=== PATIENT | male | born 1985 | race Caucasian/White ===

== ENCOUNTER 2023-05-10 15:48 | Emergency (ER) | payer SELFPAY ==
[2023-05-10 15:56] VITALS: BP 124/84
[2023-05-10 16:23] LABS: % Basophils 0.3 % (0-2); % Immature Granulocytes 0.1 % (0-0.5); % Lymphocytes 15.6 % (20.5-51.1); % Monocytes 5.6 % (1.7-9.3); % Neutrophils 78.4 % (42.2-75.2); Absolute Lymphocytes 1.4 10^3/uL (1.2-3.4); Absolute Monocytes 0.5 10^3/uL (0.1-0.6); Absolute Neutrophils 7.1 10^3/uL (1.4-6.5); Hematocrit 43.6 % (39.0-52.0); Hemoglobin 15.4 g/dL (13.0-18.0); Mean Corp Hgb Conc. 35.3 g/dL (33.0-37.0); Mean Corpuscular Hgb 30.9 pg (27.0-31.0); Mean Corpuscular Volume 87.6 fL (80.0-94.0); Nucleated Red Blood Cells % 0 % (-); Platelet Count 280 10^3/uL (130-400); Red Blood Cell Count 4.98 10^6/uL (4.70-6.10); Red Cell Dist. Width 12.1 % (11.5-14.5); White Blood Cell Count 9.1 10^3/uL (4.8-10.8)
[2023-05-10 16:36] LABS: ALT (SGPT) 20 U/L (0-50); AST (SGOT) 28 U/L (17-59); Albumin 5.2 g/dl (3.5-5.0); Alkaline Phosphatase 52 U/L (38-126); Blood Urea Nitrogen 12 mg/dl (9-20); Carbon Dioxide 26 mmol/L (22-30); Chloride 96 mmol/L (98-107); Glucose 122 mg/dl (70-99); Potassium 3.7 mmol/L (3.5-5.1); Sodium 138 mmol/L (135-145); Total Protein 8.2 g/dl (6.3-8.2); eGFR > 60.00
[2023-05-10 18:07] LABS: Acetaminophen < 10 ug/ml (10-30); Alcohol None Detected; Salicylate < 1.0 mg/dl (2.0-20.0)
--- NOTE | 2023-05-10 19:40 | ED.GENMED ---
History of Present Illness
General
Chief Complaint: Crisis Evaluation
Time Seen by Provider: 05/10/23 19:00
Travel History
Have you had any contact with someone who has COVID-19?: No
Do you have any symptoms of coronavirus? Fever > 100 degrees, chills, cough, shortness of breath, sore throat, loss of taste or smell, muscle aches, or headache?: No
History of Present Illness
History of Present Illness:
HPI: I initially spoke to crisis at around 7 PM and they inform me that the patient is here on a 302 petitioned by his sister. The 302 reads 'a brother has history of depression, anxiety, substance abuse and developed new onset psychosis for the
first time 2 weeks ago, delusions and hallucinations worsening over the past 3 days he is seeing friends and family he is incredibly paranoid, he is seeing things crawling on the best, he has not been eating, he has been had carrying around a
hatchet for protection, is more agitated and aggressive...'. However, when I evaluate the patient, the patient appears very calm and denies any significant paranoia or hallucinations and just states that he has been working a lot and they have not
been feeding him at work like they should be. He states he used to abuse pain medication is currently on Suboxone
EXAM:
GENERAL: Well appearing in no distress
HEENT: Moist oral mucosa
CARDIOVASCULAR: No murmurs, normal heart rate and rhythm, No chest wall tenderness
PULMONARY: No respiratory distress, breath sounds are clear and equal
ABDOMEN: Soft with no peritoneal signs, no tenderness
NEUROLOGIC: Excellent strength all extremities, no coordination deficits
PSYCHIATRIC: Appropriate mental status, normal insight and judgement
EXTREMITIES: Nontender, no edema, moves all extremities equally
SKIN: No rash, no lesions
ED COURSE:
7 PM: I initially evaluated patient
NUMBER AND COMPLEXITY OF PROBLEMS ADDRESSED AT THE ENCOUNTER
� Chronic conditions affecting care: No significant past medical history
� Acute Exacerbation and/or Progression of Chronic Illness: This is an acute problem
� Differential Diagnosis includes: New onset schizophrenia/paranoia, substance use
AMOUNT AND/OR COMPLEXITY OF DATA TO BE REVIEWED AND ANALYZED
� I performed an independent evaluation of and my interpretation is:
EKG:
CT:
X-rays:
Laboratory Studies: CBC and chemistries unremarkable, salicylates and acetaminophen undetected, alcohol not detected, UDS positive for marijuana, buprenorphine (which patient admits), and amphetamine (on Adderall)
Other:
� Review of other/old records: The patient had 1 ER visit here in 2009 related to flank pain and had a CAT scan at that time that was unremarkable
� Clinical information was obtained by an independent historian: I spoke to [facility] and reviewed the 302
� Prescriptions/Medications Considered but not given:
� Further testing considered but not performed:
RISK OF COMPLICATIONS AND/OR MORBIDITY OR MORTALITY OF PATIENT MANAGEMENT
� Social determinants of health affecting care: Lives at home, says that he works at [employer] in [place]
� Discussion with other providers: I spoke to crisis at around 7 PM
� Escalation of care including admission/observation vs risk of discharge considered: I did review the 302 which does sound concerning. However the patient denies any significant symptoms and is cooperative with reasonable
insight and judgment currently. He was interviewed by telepsych shortly after my initial evaluation. I spoke to crisis at 8:18 PM. Telepsych findings are currently pending.
Past History
Past History
ED Past Medical History: None
ED Past Surgical History: None
Social History
Tobacco: Smoker
Employment: Employed
Phy Exam
Physical Exam
Physical Exam:
See HPI
Course
Orders/Labs/Results
Orders:
Orders
05/10/23 16:07
Acetaminophen Urgent
Comment: ADD ON
Alcohol Urgent
Complete Blood Count/With Diff Urgent
Comprehensive Metabolic Panel Urgent
Salicylate Urgent
Comment: ADD ON
05/10/23 17:11
Add On- LAB Urgent
Comments:: sst in lab
Tests Added?: alcohol, acetaminophen, salicylate
05/10/23 19:38
Drug Screen, Urine [Urine Drug Abuse Screen] Urgent
Date Specimen was Collected: 05/10/23
Time Specimen was Collected: 19:36
Fentanyl, Urine Urgent
05/10/23 23:55
Nicotine [Nicoderm Transdermal] 21 mg .ROUTE .STK-MED ONE
05/11/23 00:01
Nicotine [Nicoderm Transdermal] 14 mg .ROUTE .STK-MED ONE
05/11/23 08:00
Nicotine [Nicoderm Transdermal] 14 mg TRANSDERM DAILY
05/11/23 11:27
COVID-19 Antigen Urgent
Source: Nasal Swab
05/11/23 12:29
Buprenorphine [Subutex] 12 mg SL NOW ONE
05/11/23 13:00
Nicotine [Nicoderm Transdermal] 21 mg TRANSDERM DAILY
Abnormal Lab Results
05/10/23 05/10/23
16:07 19:38
Absolute Neuts (auto) 7.1 H 10^3/uL
(1.4-6.5)
Neutrophils % 78.4 H %
(42.2-75.2)
Lymphocytes % 15.6 L %
(20.5-51.1)
Chloride 96 L mmol/L
(98-107)
Creatinine 0.6 L mg/dL
(0.7-1.3)
Glucose 122 H mg/dl
(70-99)
Albumin 5.2 H g/dl
(3.5-5.0)
Salicylates < 1.0 L mg/dl
(2.0-20.0)
Ur Buprenorphine Positive H
(Negative)
Acetaminophen < 10 L ug/ml
(10-30)
Ur Amphetamines Screen Positive H
(Negative)
U Marijuana (THC) Screen Positive H
(Negative)
05/10/23 16:07
05/10/23 16:07
Vital Signs
Initial and Last Documented VS:
Initial Vital Signs
Temp Pulse Resp BP Pulse Ox
98.2 F 72 18 124/84 96
05/10/23 15:56 05/10/23 15:56 05/10/23 15:56 05/10/23 15:56 05/10/23 15:56
Last Documented Vital Signs
Temp Pulse Resp BP Pulse Ox
97.9 F 85 20 125/68 100
05/11/23 00:04 05/11/23 00:04 05/11/23 00:04 05/11/23 00:04 05/11/23 00:04
*Critical Care Note
Total Time (30-74mins, 75-104mins- exclusive of procedures): Not Applicable
ED Attending Note
-
Portions of this chart may have been created with voice recognition software.� Occasional wrong word or��sound alike� substitutions may have occurred due to the inherent limitations of voice recognition software.
Discharge Plan
Departure
Patient Disposition: Psych Facility
Discharge Problem:
Psychosis
Prescriptions:
No Action
hydrocodone-acetaminophen 5 MG/500 MG tablet
1 tab PO Q4HPRN PRN (Reason: PAIN) Qty: 15 0RF
Referrals:
NONE,* [Family Provider] -
Interventions
Interventions:
*Risk Screen - Suicide Last Done: 05/10/23 15:56
*General Assessment Last Done: 05/10/23 15:56
*Neglect/Abuse Screening Last Done: 05/10/23 15:56
ED- Fall Risk Assessment Last Done: 05/11/23 16:12
*ED COVID-19 Vaccine History Last Done: 05/10/23 15:56
*Nursing Disposition Last Done: 05/11/23 16:12
ED- Cardiac Assessment Last Done: 05/10/23 18:12
ED-Psychological Assessment Last Done: 05/10/23 18:12
ED- Pulmonary Assessment Last Done: 05/10/23 18:12
ED-Skin Assessment Last Done: 05/10/23 18:12
Discharge Date and Time
Discharge Date/Time: 05/11/23 16:13
[2023-05-10 20:00] LABS: Amphetamines Positive (Negative); Barbiturates Negative (Negative); Benzodiazepines Negative (Negative); Buprenorphine Positive (Negative); Cocaine Negative (Negative); Marijuana Positive (Negative); Methadone Negative (Negative); Methamphetamines Negative (Negative); Opiates Negative (Negative); Phencyclidine Negative (Negative); Tricyclic Antidepressants Negative (Negative)
[2023-05-10 20:28] LABS: Fentanyl, Urine Negative (Negative)
[2023-05-11] MEDS: NICODERM TRANSDERMAL 14 MG TRANSDERM (00:02)
[2023-05-11 00:04] VITALS: BP 125/68
[2023-05-11 12:06] LABS: COVID-19 Antigen Negative (Negative)
[2023-05-11] MEDS: SUBUTEX 12 MG SL (12:42)
[2023-05-11] MEDS: NICODERM TRANSDERMAL 21 MG TRANSDERM (12:42)
== END 2023-05-11 16:13 ==
LOC: EMR 15:48
PROVIDERS: Emergency Medicine; EMERGENCY PHYSICIAN Emergency Medicine
DX: F29 Unspecified psychosis not due to a substance or known physiological condition (principal); F17.200 Nicotine dependence, unspecified, uncomplicated; F15.90 Other stimulant use, unspecified, uncomplicated; Z11.52 Encounter for screening for COVID-19
CPT/HCPCS: 99285; 80053; 80143; 80179; 80306; 80307; 82077; 85025; 87811

== ENCOUNTER 2023-06-03 15:46 | Emergency (ER) | payer SELFPAY ==
[2023-06-03 16:24] VITALS: BP 157/72
[2023-06-03 16:33] VITALS: BMI 23.3
--- NOTE | 2023-06-03 17:10 | ED.GENMED ---
History of Present Illness
General
Chief Complaint: Crisis Evaluation
Time Seen by Provider: 06/03/23 17:04
Travel History
Have you had any contact with someone who has COVID-19?: No
Do you have any symptoms of coronavirus? Fever > 100 degrees, chills, cough, shortness of breath, sore throat, loss of taste or smell, muscle aches, or headache?: No
History of Present Illness
History of Present Illness:
37-year-old male presents the emergency department via EMS on a 302 petition. He was apparently 302 by his significant other for delusions, psychosis, and threatening statements. The patient informs me he has no clue home filed a 302. He states
he was simply 'wrapping and pumping myself up' when 'product development ecologist came and broke down my door'. He was 3028 for similar circumstances 1 month ago and spent approximately 1 week at [facility]. He currently denies any suicidal or homicidal
ideation. Appears quite calm and complacent in the crisis room, offers no other complaints. He informs me that he self discontinued his Suboxone, is only medicated with Zyprexa at night
Past History
Past History
ED Past Medical History: None
ED Past Surgical History: None
Social History
Tobacco: Smoker
Employment: Employed
Review of Systems
Review of Systems
Allergies reviewed?: Yes
All Other Systems: ROS reviewed and negative except as documented in HPI and ROS
Phy Exam
Physical Exam
Physical Exam:
GEN: Well appearing, NAD, WDWN
HEENT: Oral mucosa moist, no scleral icterus
Cardiac: Regular rate
Lung: No respiratory distress, no tachypnea
MSK: No gross deformity or injuries
Skin: Good color, no pallor or jaundice, no rashes
Neuro: AO x3, moves all extremities freely
Psych: Pleasant, conversant, appears quite comfortable in the crisis room, does not appear to be responding to internal stimuli
Course
Orders/Labs/Results
Orders:
Orders
06/03/23 17:11
Crisis Consult Urgent
Reason for Consult: 302
06/03/23 18:02
Complete Blood Count/With Diff Urgent
Comprehensive Metabolic Panel Urgent
06/03/23 19:17
Urine Drug Abuse Screen Urgent
Date Specimen was Collected: 06/03/23
Time Specimen was Collected: 19:05
Abnormal Lab Results
06/03/23 06/03/23
18:02 19:17
WBC 12.3 H 10^3/uL
(4.8-10.8)
RBC 4.52 L 10^6/uL
(4.70-6.10)
MCH 31.6 H pg
(27.0-31.0)
Abs Immat Gran (auto) 0.1 H 10^3/uL
(0-0.05)
Absolute Neuts (auto) 10.2 H 10^3/uL
(1.4-6.5)
Neutrophils % 82.7 H %
(42.2-75.2)
Lymphocytes % 12.7 L %
(20.5-51.1)
Glucose 117 H mg/dl
(70-99)
U Marijuana (THC) Screen Positive H
(Negative)
06/03/23 18:02
06/03/23 18:02
Vital Signs
Initial and Last Documented VS:
Initial Vital Signs
Temp Pulse Resp BP Pulse Ox
98.2 F 84 16 157/72 98
06/03/23 16:24 06/03/23 16:24 06/03/23 16:24 06/03/23 16:24 06/03/23 16:24
Last Documented Vital Signs
Temp Pulse Resp BP Pulse Ox
98.2 F 84 16 157/72 98
06/03/23 16:24 06/03/23 16:24 06/03/23 16:24 06/03/23 16:24 06/03/23 16:24
MDM/Problems Addressed
MDM/Problems Addressed:
37-year-old male presenting via EMS under 302 petition filed by his significant other. He has apparently been delusional and has been making threatening statements to harm his significant other. Although the patient denies the accusations, the
petition clearly dictates that the patient is delusional, he claims that he is '[place]' from the movie 300 and God has been talking to him. He has been threatening his significant other and has also been increasingly impulsive and hypersexual. He
states he has been compliant with his nighttime Zyprexa but did discontinue his Suboxone recently. On my exam he is definitely minimizing the significance of his symptoms. 302 was initially upheld in the emergency department by attending physician
Dr. Smart, patient been seen by telepsychiatry who is in agreement with upholding the 302. He will remain in the emergency department under psychiatric hold until placement.
*Critical Care Note
Total Time (30-74mins, 75-104mins- exclusive of procedures): Not Applicable
ED Attending Note
-
Portions of this chart may have been created with voice recognition software.� Occasional wrong word or��sound alike� substitutions may have occurred due to the inherent limitations of voice recognition software.
Discharge Plan
Departure
Patient Disposition: Psych Facility
Date of Disposition: 06/03/23
Time of Disposition: 21:00
Discharge Problem:
Psychosis
Prescriptions:
No Action
hydrocodone-acetaminophen 5 MG/500 MG tablet
1 tab PO Q4HPRN PRN (Reason: PAIN) Qty: 15 0RF
Referrals:
UNKNOWN - PT DOES,NOT KNOW [Family Provider] -
Interventions
Interventions:
*Risk Screen - Suicide Last Done: 06/03/23 16:25
*General Assessment Last Done: 06/03/23 16:25
*Neglect/Abuse Screening Last Done: 06/03/23 16:25
ED- Fall Risk Assessment Last Done: 06/03/23 16:33
*ED COVID-19 Vaccine History Last Done: 06/03/23 16:25
ED-Psychological Assessment Last Done: 06/03/23 16:33
[2023-06-03 18:16] LABS: % Basophils 0.3 % (0-2); % Immature Granulocytes 0.4 % (0-0.5); % Lymphocytes 12.7 % (20.5-51.1); % Monocytes 3.9 % (1.7-9.3); % Neutrophils 82.7 % (42.2-75.2); Absolute Immature Granulocytes 0.1 10^3/uL (0-0.05); Absolute Lymphocytes 1.6 10^3/uL (1.2-3.4); Absolute Monocytes 0.5 10^3/uL (0.1-0.6); Absolute Neutrophils 10.2 10^3/uL (1.4-6.5); Hemoglobin 14.3 g/dL (13.0-18.0); Mean Corp Hgb Conc. 35.8 g/dL (33.0-37.0); Mean Corpuscular Hgb 31.6 pg (27.0-31.0); Mean Corpuscular Volume 88.5 fL (80.0-94.0); Mean Platelet Volume 9.3 fL (7.4-10.4); Nucleated Red Blood Cells % 0 % (-); Platelet Count 339 10^3/uL (130-400); Red Blood Cell Count 4.52 10^6/uL (4.70-6.10); Red Cell Dist. Width 13.4 % (11.5-14.5); White Blood Cell Count 12.3 10^3/uL (4.8-10.8)
[2023-06-03 18:30] LABS: ALT (SGPT) 35 U/L (0-50); AST (SGOT) 30 U/L (17-59); Albumin 4.3 g/dl (3.5-5.0); Alkaline Phosphatase 81 U/L (38-126); Blood Urea Nitrogen 15 mg/dl (9-20); Calcium 9.2 mg/dl (8.4-10.2); Carbon Dioxide 28 mmol/L (22-30); Chloride 102 mmol/L (98-107); Estimated Creatinine Clearance > 125 ml/min; Glucose 117 mg/dl (70-99); Potassium 3.8 mmol/L (3.5-5.1); Sodium 137 mmol/L (135-145); Total Bilirubin 0.4 mg/dl (0.2-1.3); Total Protein 6.8 g/dl (6.3-8.2); eGFR > 60.00
[2023-06-03 19:34] LABS: Amphetamines Negative (Negative); Barbiturates Negative (Negative); Benzodiazepines Negative (Negative); Buprenorphine Negative (Negative); Cocaine Negative (Negative); Marijuana Positive (Negative); Methadone Negative (Negative); Methamphetamines Negative (Negative); Opiates Negative (Negative); Phencyclidine Negative (Negative); Tricyclic Antidepressants Negative (Negative)
[2023-06-04] MEDS: ZYPREXA 10 MG PO (00:06)
[2023-06-04 08:34] VITALS: BP 130/78
== END 2023-06-04 09:10 ==
LOC: EMR 15:46
PROVIDERS: Physician Assistant; EMERGENCY PHYSICIAN Emergency Medicine
DX: F29 Unspecified psychosis not due to a substance or known physiological condition (principal)
CPT/HCPCS: 99285; 80053; 80306; 85025